=== PATIENT | male | born 1940 | race Asian ===

== ENCOUNTER 2020-05-23 10:25 | Outpatient (CLI) | payer OTHER | END 2020-05-23 22:07 | disposition home or self-care (01) | LOC: MRD 10:25 | PROVIDERS: ATTEND Family Medicine | DX: S09.90XA Unspecified injury of head, initial encounter (principal); I67.82 Cerebral ischemia; X58.XXXA Exposure to other specified factors, initial encounter; Y93.89 Activity, other specified; Y92.89 Other specified places as the place of occurrence of the external cause; Y99.8 Other external cause status | CPT/HCPCS: 70450 ==

== ENCOUNTER 2020-07-05 13:47 | Inpatient (IN) | payer OTHER, SELFPAY ==
[~2020-07-05] VITALS: Ht 170.2 cm; Wt 63.7 kg
[2020-07-05 14:21] VITALS: BP 185/82
[2020-07-05] MEDS ORDERED: metroNIDAZOLE 500 MG/NS PREMIX 100 ML IV ONE (14:30)
--- NOTE | 2020-07-05 14:39 | NUR ---
BIBA TAKEN TO BED 10
[2020-07-05] MEDS ORDERED: AZITHROMYCIN 500 MG in DEXTROSE 5% 250 ML IV ONE (14:40)
--- NOTE | 2020-07-05 14:45 | NUR ---
RECEIVED A 79/M FROM COMM. EXTENDED CARE FOR HYPOXIA/DECREASED SATURATIONS. UPON ARRIVAL TO [facility] PT WAS DIAPHORETIC AND ATTEMPTING TO REMOVE NRB. LUNG SOUNDS CRACKLES BILATERALLY. 20G TO LAC ESTABLISHED AND LABS DRAWN FROM LINE. ROSADO AT BEDSIDE AND ORDER FOR 1MG ATIVAN RECEIVED. WILL MEDICATE ORDERED.
[2020-07-05] MEDS ORDERED: LORazepam 2 MG/ML VIAL ONE (14:48)
[2020-07-05] MEDS ORDERED: LORazepam 2 MG/ML VIAL IVP ONE ×2 (14:50→15:35)
[2020-07-05] MEDS ORDERED: FUROSEMIDE 40 MG/4 ML VIAL IVP ONE (14:50)
[2020-07-05] MEDS ORDERED: DEXAMETHASONE 4 MG/ML VIAL IVP SCH (14:50)
[2020-07-05] MEDS ORDERED: NITROGLYCERIN 2% 1 GM PKT TP ONE (14:55)
[2020-07-05] MEDS ORDERED: cefTRIAXone 1,000 MG VIAL ONE (14:56)
--- NOTE | 2020-07-05 15:10 | NUR ---
REPORT TO MENA VIRGEN. ALL CARE TRANSFERRED.
[2020-07-05 15:20] LABS: BASOPHILS # (AUTO) 0.1 K/uL (0.00-0.22); BASOPHILS % (AUTO) 0.6 % (0.0-2.0); HEMATOCRIT 28.3 % (36-52); HEMOGLOBIN 9.1 g/dL (12.0-18.0); LYMPHOCYTES # (AUTO) 1.4 K/uL (2.0-11.5); LYMPHOCYTES % (AUTO) 10.6 % (20.5-51.1); MEAN CORPUSCULAR HEMOGLOBIN 29 pg (27-31); MEAN CORPUSCULAR HGB CONC 32 g/dL (33-37); MEAN CORPUSCULAR VOLUME 90.6 fL (80-94); MONOCYTES # (AUTO) 1.6 K/uL (0.8-1.0); MONOCYTES % (AUTO) 12.4 % (1.7-9.3); NEUTROPHILS # (AUTO) 10.1 K/uL (1.8-7.7); NEUTROPHILS % (AUTO) 76.4 % (42.2-75.2); PLATELET COUNT (AUTO) 295 K/uL (140-450); RED BLOOD CELL COUNT(AUTO) 3.12 MIL/uL (4.20-6.10); RED CELL DISTRIBUTION WIDTH 16.8 % (11.6-13.7); WHITE BLOOD COUNT (AUTO) 13.2 K/uL (4.8-10.8)
[2020-07-05 15:23] VITALS: BP 250/150
--- NOTE | 2020-07-05 15:34 | NUR ---
EKG being performed at bedside.
[2020-07-05] MEDS ORDERED: METOPROLOL 5 MG/5 ML VIAL IVP ONE (15:35)
--- NOTE | 2020-07-05 15:35 | NUR ---
Dr. Ambrosio notified of pt increased BP 267/110. adviced to medicate with 5mg metropolol.
[2020-07-05] MEDS ORDERED: METOPROLOL 5 MG/5 ML VIAL ONE (15:36)
--- NOTE | 2020-07-05 15:47 | NUR ---
Current BiPaP settings as follows: I/E: 06/04 Rate 14 FIO2 100%
[2020-07-05 15:49] LABS: ALBUMIN 3.6 g/dL (3.4-5.0); ANION GAP 17.8 (8-16); ASPARTATE AMINOTRANSFERASE 24 U/L (15-37); CARBON DIOXIDE 28.1 mmol/L (21-32); CHLORIDE 94 mmol/L (98-107); GLUCOSE 119 mg/dL (74-106); SODIUM SERUM 134 mmol/L (136-145); TOTAL BILIRUBIN 0.5 mg/dL (0.0-1.0)
[2020-07-05] MEDS: ALBUTEROL SULFATE/IPRATROPIU 3 ML SOL IH SCH ×3 (16:09→23:00)
[2020-07-05 16:13] LABS: LACTATE DEHYDROGENASE 243 U/L (85-227)
[2020-07-05 16:16] LABS: CREATININE 8.1 mg/dL (0.6-1.3); UREA NITROGEN, BLOOD 83 mg/dL (7-18)
[2020-07-05 16:17] LABS: POTASSIUM 5.9 mmol/L (3.5-5.1)
--- NOTE | 2020-07-05 16:21 | NUR ---
BiPaP settings changed: I/E 06/04 Rate of 14 FI02 60 saturations holding well @ 99%. Dr. Ambrosio adviced to switch to HFNC.
[2020-07-05] MEDS ORDERED: ZOLPIDEM 5 MG TAB PO PRN (16:45)
[2020-07-05] MEDS ORDERED: HYDROcodone/APAP 5/325 MG 1 TAB TAB PO PRN (16:45)
[2020-07-05] MEDS ORDERED: ALBUTEROL HFA MDI 90 MCG/ACTUATION 8 GM INH PRN (16:45)
[2020-07-05] MEDS ORDERED: MORPHINE SULFATE 2 MG/ML SYR IVP PRN (16:45)
[2020-07-05] MEDS ORDERED: DOCUSATE SODIUM 100 MG GELCAP PO PRN (16:45)
[2020-07-05] MEDS ORDERED: ACETAMINOPHEN 325 MG TAB PO PRN (16:45)
[2020-07-05] MEDS ORDERED: ONDANSETRON 4 MG/2 ML VIAL IVP PRN (16:45)
[2020-07-05] MEDS ORDERED: AZITHROMYCIN 500 MG INJ VIAL IV ONE (16:52)
[2020-07-05] MEDS: NACL 0.9% 1,000 ML IV SCH (18:00)
[2020-07-05 19:12] LABS: CHOL/HDL RATIO 2.4 (1-4.5); FREE T4 (FREE THYROXINE) 1.08 ng/dL (0.76-1.46); MAGNESIUM 3.1 mg/dL (1.8-2.4); PHOSPHORUS 8.9 mg/dL (2.5-4.9); THYROID STIMULATING HORMONE 4.95 uIU/mL (0.34-3.74)
--- NOTE | 2020-07-05 19:58 | NUR ---
s/w Dialysis Nurse Ilsa, stated will have dialysis tomorrow at 0800.
[2020-07-05 20:20] VITALS: BP 231/207
--- NOTE | 2020-07-05 23:45 | NUR ---
s/w Dr. Agosto regarding pt status. stated need to consult with Nephro
--- NOTE | 2020-07-06 00:30 | NUR ---
s/w Dr. Davidson regarding pt status and BP. advised to place PRN orders.
--- NOTE | 2020-07-06 00:47 | NUR ---
s/w Prince SAN for pt transfer of care report.
--- NOTE | 2020-07-06 01:00 | NUR ---
PT TAKEN TO TELEMETRY 118-A. ALL COVID PRECAUTIONS TAKEN IN PLACE WAS TRANSPORTED WITH WILIAM HACKETT AND RT BAUMAN. PT LEFT IN STABLE CONDITION.
--- NOTE | 2020-07-06 01:30 | NUR ---
PT ARRIVED ON UNIT (APPROX. AT 0120) IN STABLE CONDITION VIA STRETCHER AND W ALL BELONGINGS.
[2020-07-06] MEDS: NACL 0.9% 1,000 ML IV SCH (02:45)
[2020-07-06] MEDS: ALBUTEROL SULFATE/IPRATROPIU 3 ML SOL IH SCH ×6 (03:00→23:00)
--- NOTE | 2020-07-06 03:31 | NUR ---
PT HAS TUBE OF UNKNOWN PURPOSE PROJECTING OUT OF LOWER ABDOMEN. WILL ENDORSE TO DAY RN FOR F/U.
[2020-07-06 04:25] VITALS: BP 166/94
--- NOTE | 2020-07-06 06:31 | NUR ---
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
--- NOTE | 2020-07-06 06:46 | NUR ---
SORENSEN (SOO), PRIMARY DECISION-MAKER, , CALLED AND INFORMED DRAWING KILN SUPERVISOR THAT HER FATHER CAME FROM [place], [place] ("[address] AND WAS RECEIVING PERITONEAL DIALYSIS (VIA THE ABDOMINAL TUBE) BUT AFTER SOME TIME BEGAN RECEIVING HEMODIALYSIS (MWF SCHEDULE). PT SPEAKS PORTUGUESE AND JAPANESE. NORMAL LOC IS A+O*NAME ONLY (PRIOR TO DIALYSIS) AND IMPROVES AFTER HD. PT TO HAVE HD THIS AM AT 0800.
--- NOTE | 2020-07-06 07:42 | NUR ---
VERIFIED Eliza DIAZ THAT PT IS TO HAVE EMERGENCY HD AT 0800 THIS AM.
--- NOTE | 2020-07-06 07:45 | NUR ---
RECEIVED PATIENT FROM NIGHT NURSE. PATIENT IN BED, EYES CLOSED, EASILY AROUSBLE TO NAME. RESP EVEN AND UNLABORED ON BIPAP. PEDAL POSITION NOTED. LAC 20G, SL. R UPPER CHEST AKIN NOTED FOR HD. HOB ELEVATED. CALL LIGHT WITHIN REACH. WILL CONTINUE TO MONITOR.
[2020-07-06 08:00] VITALS: BP 160/87
--- NOTE | 2020-07-06 08:07 | NUR ---
BILAT 2-3+PITTING EDEMA NOTED
[2020-07-06] MEDS: ASCORBIC ACID 500 MG TAB PO SCH ×2 (09:00→10:55)
[2020-07-06] MEDS ORDERED: ENOXAPARIN 40 MG/0.4 ML SYR SUBQ SCH (09:00)
[2020-07-06] MEDS: VITAMIN D 400 IU TAB PO SCH ×2 (09:00→10:54)
[2020-07-06] MEDS: AZITHROMYCIN 250 MG TAB PO SCH ×2 (09:00→10:54)
[2020-07-06] MEDS: ENOXAPARIN 30 MG/0.3 ML SYR SUBQ SCH (10:47)
--- NOTE | 2020-07-06 11:13 | NUR ---
PATIENT IN BED AWAKE, SLOW TO RESPOND BUT ALERT. RESP EVEN AND UNLABORED ON BIPAP, O2SAT 93%. RESTRAINTS REMOVED AT THIS TIME D/T OXYGEN DELIVERY METHOD. RT WAS CALLED FOR ALTERNATE METHOD. PATIENT REFUSED PO MEDICATIONS. NO IV POLE OR PUMP AVAILABLE AT THIS TIME. LAC 20G INTACT AND PATENT. PATIENT WAS ENCOURAGED TO NOT PULL ON HIS IV LINE AND HD CATHETER. CALL LIGHT WITHIN REACH. WILL CONTINUE TO MONITOR.
[2020-07-06 12:00] VITALS: BP 121/100
--- NOTE | 2020-07-06 12:05 | NUR ---
PATIENT PLACED HUMIDIFIED HIGH FLOW NC 40L 100% FIO2. PATIENT REMOVED HIS OXYGEN AND DESAT TO 74%. OXYGEN IMMEDIATELY REAPPLIED AND RESTRAINTS APPLIED. O2SAT MAINTAINED 90% AT THIS TIME.
[2020-07-06] MEDS: LORazepam 2 MG/ML VIAL IM/IVP PRN ×3 (12:27→23:44)
--- NOTE | 2020-07-06 12:32 | NUR ---
ATIVAN GIVEN FOR RESTLESSNESS. FLUIDS GIVEN. RESP EVEN AND UNLABORED, O2SAT 95%. CALL LIGHT WITHIN REACH. WILL CONTINUE TO MONITOR.
--- NOTE | 2020-07-06 13:07 | NUR ---
SOCIAL WORK NOTE: Patient's Orientation Unable To Assess Information Provided By ELENI LONDON - DAUGHTER Comments SW WAS UNABLE TO MEET PATIENT AT BEDSIDE TO COMPLETE ASSESSMENT. PATIENT COMPLETED ASSESSMENT WITH PATIENT'S DAUGHTER. Gymnasium Teacher, Realtionship and Phone Number ELENI LONDON DAUGHTER [phone] Healthcare Power of Display Trimmer No Does Patient Have a POLST No Identifying Problems No Social Work Triggers Is A Social Work Consult Needed No Mandate Report Filed No Explanation Of Identifying Problems PATIENT IS A 79-YEAR-OLD MALE ADMITTED FOR COVID. PATIENT HAS PMHX OF HYPERTENSION AND RENAL DISEASE. [facility] - [phone] Pre-Admission Level Of Functioning Status Total Care Prior Resources/Services Used In Last 12 Months SNF [facility] Prior Resources/Service Comments PATIENT IS FDC AND ON A BED HOLD. Prior DME Home Oxygen Walker Dialysis Comments N/A Patient Had Caregiver No Home Support No Caregiver Issues Financial Issues No Known Financial Issue Referral To The Financial Counselor Needed No Factors/Needs No D/C Needs Identified Pt/Rep Participated In Discharge Plan Yes Patient/Family Agress With Discharge Plan Yes Discharge Plan Comments TENTATIVE DISCHARGE PLAN IS FOR PATIENT TO RETURN TO [facility]. DC Plan Status Initiated
--- NOTE | 2020-07-06 13:45 | NUR ---
PATIENT RESTLESS. O2SAT 90%, DR BEAULIEU IN HOUSE GAVE ORDER FOR ATIVAN 0.5ML IVP X1 NOW. ORDER CARRIED OUT. Addendum: 07/06/20 at 1816 by Lynette Peña RN SPOKE TO DAUGHTER ELENI, ABOUT PATIENT CODE STATUS. PATIENT IS A FULL DNR. DR ERWIN MADE AWARE.
[2020-07-06] MEDS ORDERED: LORazepam 2 MG/ML VIAL IVP SCH (14:00)
[2020-07-06 16:00] VITALS: BP 158/101
--- NOTE | 2020-07-06 16:00 | NUR ---
ENDORSED PATIENT TO MENA COFFMAN FOR CONTINUITY OF CARE. PATIENT IN BED EYES CLOSED, RESP EVEN WITH MINOR LABORED ON HUMIDIFIED HIGH FLOW 40L NC, O2SAT 91%. RESTRAINTS IN PLACE AT THIS TIME. CALL LIGHT WITHIN REACH. WILL CONTINUE TO MONITOR.
--- NOTE | 2020-07-06 16:10 | NUR ---
RECEIVED PATIENT AGITATED, ON BILATERAL SOFT WRIST RESTRAINTS. NO SIGNS OF CYANOSIS ON DISTAL MORIAH UPPER EXTREMITIES. PT ON HIGH FLOW O2 AT 40L, OBTAINED 91% O2 SAT. KEPT HOB ELEVATED. WILL CONTINUE TO MONITOR.
--- NOTE | 2020-07-06 17:32 | NUR ---
PT IS RESTLESS AND AGITATED. PT IS TACHYPNEIC WITH 02 SAT AT 85%. ATIVAN PRN GIVEN. REPOSITIONING DONE.
--- NOTE | 2020-07-06 18:00 | NUR ---
PLACED PT TO 15L NRM. RT RILEY IS AWARE. OBTAINED 92% O2 SAT THEREAFTER
--- NOTE | 2020-07-06 18:15 | NUR ---
SPOKE WITH DR. Brooklynn RICCI TO CHANGE CODE STATUS TO DNR PER FAMILY/PATIENT DECISION.
--- NOTE | 2020-07-06 18:23 | NUR ---
SPOKE WITH PT'S DAUGHTER ELENI TO FAX PT'S POLST PAPER. FAMILY IS AWARE OF PT'S DNR STATUS.
--- NOTE | 2020-07-06 19:45 | NUR ---
ENDORSED PT TO MOLD FILLER AND DRAINER RN. POC REVIEWED. PT IS STABLE. NO S/S OF DISTRESS.
[2020-07-06 20:00] VITALS: BP 173/112
--- NOTE | 2020-07-06 20:00 | NUR ---
RECEIVED REPORT FROM AM SHIFT MEGHNA SAN. PT NOTED WITH RESP DISTRESS AND ANXIETY. BP IS HIGH 173/112 HR 140 AND SPO2 93%. PATIENT CONT HUMIDIFIED HIGH FLOW NC 40L 100% FIO2. AND NON REBREATHER MASK AT 15 LPM.PATIENT KEEP TRYING TO REMOVE HIS OXYGEN TUBE. OXYGEN IMMEDIATELY REAPPLIED . REMIND PT NOT TO REMOVE THE O2 TUBE. CONT TO MAINTAINED SPO2 > 90% AT THIS TIME. RESTRAIN TO MORIAH HAND IN PLACE. PT ON DIALYSIS SCHEDULE - - - PER REPORT. IV LINE TO RIGHT AC NO 20 FLUSHING WELL. IVF NS AT 10 CC/HR. DIALYSIS SITE TO RIGHT CHEST. OLD PERITONEAL CATHETER STILL IN PLACE.PER REPORT PT IS DNR.NO SKIN PROBLEM ON THE RESTRAINT AREA NOTED. SKIN WARM TO TOUCH.CONT CLOSE MONITORING.
[2020-07-06] MEDS: hydrALAZINE 20 MG/ML VIAL IVP PRN ×3 (20:19→23:47)
--- NOTE | 2020-07-06 21:40 | NUR ---
APRESOLINE 20 MG IVP WAS GIVEN D/T BP HIGH 173/112 AFTER 1 HOUR BP DOWN TO 156/100 HR 140. SPO2 92%.
[2020-07-07] VITALS: BP 147/91
--- NOTE | 2020-07-07 | NUR ---
CONT TO MONITOR CLOSELY SPO2 90-92%. UA COLLECTED AND SENT TO LAB.
--- NOTE | 2020-07-07 01:00 | NUR ---
ATIVAN WAS GIVEN AROUND 2345 (07/06/20) D/T PT ANXIOUS AND EUGENIA WELL. PT LOOK MORE CALM AT THIS TIME.
--- NOTE | 2020-07-07 02:10 | NUR ---
PT TRYING TO REMOVED THE MASK/O2. CONT TO REMIND PT TO RELAX AND TO LEAVE THE O2 MASK ON. SPO2 90%.
[2020-07-07] MEDS: ALBUTEROL SULFATE/IPRATROPIU 3 ML SOL IH SCH ×6 (03:00→23:00)
[2020-07-07 04:00] VITALS: BP 179/111
--- NOTE | 2020-07-07 06:20 | NUR ---
APRESOLINE 20MG GIVEN D/T HIGH BP 197/111 HR 147 SPO2 93%.
[2020-07-07] MEDS: LORazepam 2 MG/ML VIAL IM/IVP PRN ×2 (06:22→21:42)
[2020-07-07] MEDS: hydrALAZINE 20 MG/ML VIAL IVP PRN (06:23)
--- NOTE | 2020-07-07 07:30 | NUR ---
BP DOWN TO 154/96
--- NOTE | 2020-07-07 07:54 | NUR ---
REPORT GIVEN TO LUIS SAN. PT IS AWAKE STILL ANXIOUS.
[2020-07-07 08:00] VITALS: BP 151/90
--- NOTE | 2020-07-07 08:00 | NUR ---
RECEIVED REPORT FROM THE WAREHOUSE SPECIALIST FOR CONTINUITY OF CARE. PATIENT AWAKE, VERY RESTLESS, ON BILATERAL WRIST RESTRAINT. ON MONITOR SHOWS ST/SR. WITH IVF ON GOING AND INFUSING WELL. ON HIGH FLOW [id number]%. WILL CONTINUE TO MONITOR.
[2020-07-07 08:36] LABS: BASOPHILS % (AUTO) 0.1 % (0.0-2.0); HEMATOCRIT 29.8 % (36-52); HEMOGLOBIN 9.7 g/dL (12.0-18.0); LYMPHOCYTES # (AUTO) 0.6 K/uL (2.0-11.5); LYMPHOCYTES % (AUTO) 4.4 % (20.5-51.1); MEAN CORPUSCULAR HEMOGLOBIN 29 pg (27-31); MEAN CORPUSCULAR HGB CONC 33 g/dL (33-37); MEAN CORPUSCULAR VOLUME 89.7 fL (80-94); MONOCYTES # (AUTO) 0.9 K/uL (0.8-1.0); MONOCYTES % (AUTO) 6.8 % (1.7-9.3); NEUTROPHILS # (AUTO) 12.3 K/uL (1.8-7.7); NEUTROPHILS % (AUTO) 88.7 % (42.2-75.2); PLATELET COUNT (AUTO) 268 K/uL (140-450); RED BLOOD CELL COUNT(AUTO) 3.33 MIL/uL (4.20-6.10); RED CELL DISTRIBUTION WIDTH 17.1 % (11.6-13.7); WHITE BLOOD COUNT (AUTO) 13.9 K/uL (4.8-10.8)
[2020-07-07 08:40] LABS: ANION GAP 24.9 (8-16); CARBON DIOXIDE 20.4 mmol/L (21-32); CHLORIDE 97 mmol/L (98-107); GLUCOSE 82 mg/dL (74-106); POTASSIUM 5.3 mmol/L (3.5-5.1); SODIUM SERUM 137 mmol/L (136-145)
[2020-07-07] MEDS ORDERED: EPOETIN ALFA 4,000 UNITS/ML VIAL IV SCH (09:00)
--- NOTE | 2020-07-07 10:00 | NUR ---
SCHEDULED MEDICATION GIVEN CRUSHED AND TOLERATED WELL. WILL CONTINUE TO MONITOR.
[2020-07-07] MEDS: VITAMIN D 400 IU TAB PO SCH (10:06)
[2020-07-07] MEDS: AZITHROMYCIN 250 MG TAB PO SCH (10:06)
[2020-07-07] MEDS: ASCORBIC ACID 500 MG TAB PO SCH (10:06)
[2020-07-07] MEDS: ENOXAPARIN 30 MG/0.3 ML SYR SUBQ SCH (10:12)
[2020-07-07 10:35] LABS: PHOSPHORUS 10.5 mg/dL (2.5-4.9); UREA NITROGEN, BLOOD 94 mg/dL (7-18)
[2020-07-07 10:54] LABS: APPEARANCE,URINE HAZY (CLEAR); BILIRUBIN,URINE NEGATIVE (NEGATIVE); BLOOD, URINE 3+ (NEGATIVE); COLOR,URINE YELLOW (YELLOW); LEUKOCYTE ESTERASE ,URINE NEGATIVE (NEGATIVE); NITRITE, URINE NEGATIVE (NEGATIVE); UGLUCOSE TRACE (NEGATIVE)
[2020-07-07 12:00] VITALS: BP 130/87
--- NOTE | 2020-07-07 13:26 | NUR ---
PATIENT HAS BEEN SCREENED AND CATEGORIZED MODERATE NUTRITION RISK. PATIENT WILL BE SEEN WITHIN 3-5 DAYS OF ADMISSION. 07/07/20 07/09/[address]
[2020-07-07 14:53] LABS: RBC,URINE 11-20 (MOD) /HPF (0-5); WBC,URINE 0-5 /HPF (0-5)
--- NOTE | 2020-07-07 15:37 | NUR ---
PATIENT FOR DIALYSIS TODAY, DIALYSIS NURSE AT BEDSIDE. PATIENT DAUGHTER CALLED AND HANDED THE PHONE TO THE PATIENT. PATIENT ASLEEP. WILL CONTINUE TO MONITOR.
[2020-07-07 16:00] VITALS: BP 123/67
--- NOTE | 2020-07-07 16:35 | NUR ---
DC PLANN[age] YRS OLD MALE PATIENT WAS ADMITTED FROM [facility] WITH A DX OF COVID . RAPID COVID TEST IS POSITIVE . STARTED COVID TREATMENT, ROCEPHIN AND AZITHROMYCIN. ON HIGH FLOW O2 40 L/NC FIO2 100% . CONSULTED WITH PULMO CARDIO, AND NEPHRO FOR HEMODIALYSIS. DC PLAN TO GO BACK TO [facility] WHEN STABLE. CM TO FOLLOW
--- NOTE | 2020-07-07 18:00 | NUR ---
DIALYSIS DONE WITH 4L OUTPUT REMOVED, VITALS STABLE. PATIENT RESTING IN BED. WILL CONTINUE TO MONITOR.
--- NOTE | 2020-07-07 19:00 | NUR ---
REPORT GIVEN TO THE GRAIN MANAGER FOR CONTINUITY OF CARE. IN STABLE CONDITION.
--- NOTE | 2020-07-07 19:01 | NUR ---
RECEIVED BEDSIDE REPORT FROM DAY RN. PT IS SLEEP COMFORTABLY IN BED WITH EYES CLOSED. CHEST RISE AND FALL NOTED. ON HIGH FLOW 40L AND NRB SAT WELL 96-99%. SKIN IS INTACT. PT IS FROM [facility] DNR. IV ON LAC 20G IVF PER ORDERS. PT IS ON MORIAH SOFT WRIST RESTRAINTS D/T REMOVING OXYGEN. HX ESRD LAST HD TODAY WITH 4L OUTPUT. PT ON DROPLET ISOLATION FOR COVID. POC DISCUSSED WITH PT. PT UNABLE TO COMPREHEND. SAFETY MEASURES ARE IN PLACE. WILL ROUND FREQUENTLY.
[2020-07-07 20:00] VITALS: BP 105/63
--- NOTE | 2020-07-07 21:42 | NUR ---
ADMINISTERED PRN ATIVAN FOR AGITATION. PT KEEPS REMOVING NRB MASK BY MOVING HEAD UP AND DOWN SIDE TO SIDE. REORIENTED PT TO ROOM,STAFF AND POC. PT DE SATS 70-80 WITHOUT NRB. PT SAT 90-93% ON NRB AND HIGH FLOW 40L WILL CONTINUE TO MONITOR.
[2020-07-08] VITALS: BP 92/59
--- NOTE | 2020-07-08 | NUR ---
VITAL SIGNS ARE STABLE. PT IS SINUS TACHY 160S NO S/S OF DISTRESS. SAFETY MEASURES ARE IN PLACE. WILL CONTINUE TO MONITOR.
[2020-07-08] MEDS: ALBUTEROL SULFATE/IPRATROPIU 3 ML SOL IH SCH ×6 (03:00→23:00)
--- NOTE | 2020-07-08 03:30 | NUR ---
MD MADE AWARE OF PATIENT ELEVATED HEART RATE IN 150-160S NO CHANGE IN ORDERS. WILL CONTINUE TO MONITOR.
[2020-07-08 04:00] VITALS: BP 125/71
--- NOTE | 2020-07-08 04:08 | NUR ---
VITAL SIGNS ARE WITHIN NORMAL LIMITS. ALL SAFETY MEASURES ARE IN PLACE. WILL CONTINUE TO MONITOR.
--- NOTE | 2020-07-08 06:00 | NUR ---
MADE ROUNDS. PT REMOVED NRB MASK SAT LOW 80S. REAPPLIED NRB AND REPOSITION PT FOR COMFORT. GAVE PT WATER TOLERATED WELL. HOB ELEVATED. PT REMAINS ON MORIAH SOFT RESTRAINTS FOR SAFETY. WILL CONTINUE TO MONITOR.
--- NOTE | 2020-07-08 07:35 | NUR ---
GAVE BEDSIDE REPORT TO DAY RN. PT ENDORSED IN STABLE CONDITION.
[2020-07-08 08:00] VITALS: BP 162/69
[2020-07-08 09:41] LABS: BASOPHILS % (AUTO) 0.2 % (0.0-2.0); HEMATOCRIT 34.3 % (36-52); HEMOGLOBIN 11.3 g/dL (12.0-18.0); LYMPHOCYTES # (AUTO) 0.4 K/uL (2.0-11.5); LYMPHOCYTES % (AUTO) 2.5 % (20.5-51.1); MEAN CORPUSCULAR HEMOGLOBIN 29 pg (27-31); MEAN CORPUSCULAR HGB CONC 33 g/dL (33-37); MONOCYTES # (AUTO) 0.8 K/uL (0.8-1.0); MONOCYTES % (AUTO) 4.9 % (1.7-9.3); NEUTROPHILS # (AUTO) 14.5 K/uL (1.8-7.7); NEUTROPHILS % (AUTO) 92.4 % (42.2-75.2); PLATELET COUNT (AUTO) 280 K/uL (140-450); RED BLOOD CELL COUNT(AUTO) 3.86 MIL/uL (4.20-6.10); RED CELL DISTRIBUTION WIDTH 16.8 % (11.6-13.7); WHITE BLOOD COUNT (AUTO) 15.7 K/uL (4.8-10.8)
[2020-07-08 10:18] LABS: ALBUMIN 3.5 g/dL (3.4-5.0); ANION GAP 23.2 (8-16); ASPARTATE AMINOTRANSFERASE 39 U/L (15-37); CARBON DIOXIDE 22.9 mmol/L (21-32); CHLORIDE 97 mmol/L (98-107); GLUCOSE 80 mg/dL (74-106); LACTATE DEHYDROGENASE 353 U/L (85-227); POTASSIUM 5.1 mmol/L (3.5-5.1); SODIUM SERUM 138 mmol/L (136-145); TOTAL BILIRUBIN 0.5 mg/dL (0.0-1.0)
[2020-07-08] MEDS: ASCORBIC ACID 500 MG TAB PO SCH (10:39)
[2020-07-08] MEDS: ENOXAPARIN 30 MG/0.3 ML SYR SUBQ SCH (10:39)
[2020-07-08] MEDS: VITAMIN D 400 IU TAB PO SCH (10:39)
--- NOTE | 2020-07-08 10:39 | NUR ---
SCHEDULED MEDICATIONS DUE GIVEN. WILL CONTINUE TO MONITOR.
[2020-07-08] MEDS: LORazepam 2 MG/ML VIAL IM/IVP PRN ×2 (10:59→15:04)
[2020-07-08 12:00] VITALS: BP 171/61
[2020-07-08 12:12] LABS: CREATININE 7.3 mg/dL (0.6-1.3); PHOSPHORUS 9.7 mg/dL (2.5-4.9); UREA NITROGEN, BLOOD 87 mg/dL (7-18)
[2020-07-08] MEDS: LABETALOL 100 MG/20 ML VIAL IVP PRN ×3 (12:13→23:58)
[2020-07-08 16:00] VITALS: BP 184/58
[2020-07-08] MEDS: hydrALAZINE 20 MG/ML VIAL IVP PRN (17:02)
[2020-07-08] MEDS: SEVELAMER CARBONATE 800 MG TAB PO SCH (17:02)
--- NOTE | 2020-07-08 17:07 | NUR ---
SCHEDULED MEDICATIONS DUE GIVEN. FLACC 8, MORPHINE GIVEN AT THIS TIME. WILL CONTINUE TO MONITOR.
--- NOTE | 2020-07-08 19:30 | NUR ---
RECEIVED BEDSIDE REPORT FROM DAY RN. PT IS IN BED REMAINS CONFUSED ATTEMPTING TO REMOVE NRB MASK. PT IS ON MORIAH SOFT WRIST RESTRAINTS. RESPIRATIONS ARE EQUAL AND LABORED RR 23 ON HIGH FLOW 40L AND NRB 15L SAT WELL 93-94%. SKIN IS INTACT. PT IS FROM [facility] DNR. IV ON LAC 20G IVF PER ORDERS. HX ESRD HD YESTERDAY HAS R CHEST TUNNELED CATH. PT ON DROPLET ISOLATION FOR COVID. POC DISCUSSED WITH PT. PT UNABLE TO COMPREHEND. SAFETY MEASURES ARE IN PLACE. HOB ELEVATED. CALL LIGHT IS WITHIN REACH. BED ALARM ON. WILL ROUND FREQUENTLY.
--- NOTE | 2020-07-08 19:32 | NUR ---
GAVE REPORT TO PROMOTIONS ASSISTANT SALES MARKETING NURSE FOR CONTINUITY OF CARE. PATIENT IN STABLE CONDITION.
--- NOTE | 2020-07-08 19:55 | NUR ---
RECHECKED PT'S BP: 134/48 HR 153BPM. BLOOD PRESSURE HAS IMPROVED PTS HEART RATE REMAINS ELEVATED MD IS AWARE. PT REMAINS ON TELE MONITOR. ALL SAFETY MEASURES ARE IN PLACE. WILL CONTINUE TO MONITOR.
[2020-07-08 20:00] VITALS: BP 134/48
--- NOTE | 2020-07-08 22:10 | NUR ---
ASSISTED PT WITH DINNER MAINTAIN ASPIRATION PRECAUTIONS. PATIENT ATE HALF OF JELLO AND A COUPLE SPOONFULS OF WATER. HOB ELEVATED. SAFETY MEASURES ARE IN PLACE. WILL CONTINUE TO MONITOR.
--- NOTE | 2020-07-08 23:58 | NUR ---
B/P 173/76 152BPM 90% RR 24 ADMINISTERED PRN LABETALOL. PT REMAINS ON TELE MONITOR. WILL CONTINUE TO MONITOR CLOSELY.
[2020-07-09] VITALS: BP 173/76
[2020-07-09 00:58] VITALS: BP 162/58
[2020-07-09] MEDS: LORazepam 2 MG/ML VIAL IM/IVP PRN ×2 (01:01→08:21)
--- NOTE | 2020-07-09 01:01 | NUR ---
BP RECHECKED 162/58 149 BPM. PATIENT IS AGITATED ATTEMPTING TO REMOVE NRB MASK. ATTEMPT TO REORIENT PT. PT CONT TO REMOVE NRB MASK ADMINISTERED PRN ATIVAN. SAFETY MEASURES ARE IN PLACE. WILL CONTINUE TO MONITOR.
[2020-07-09] MEDS: ALBUTEROL SULFATE/IPRATROPIU 3 ML SOL IH SCH ×2 (03:00→07:00)
[2020-07-09] MEDS: hydrALAZINE 20 MG/ML VIAL IVP PRN (03:56)
--- NOTE | 2020-07-09 04:00 | NUR ---
VITAL SIGNS ARE WITHIN NORMAL LIMITS. ALL SAFETY MEASURES ARE IN PLACE. WILL CONTINUE TO MONITOR.
[2020-07-09 04:14] VITALS: BP 165/64
--- NOTE | 2020-07-09 04:50 | NUR ---
BP RECHECK 129/44 151 BPM. ALL SAFETY MEASURES ARE IN PLACE. WILL CONTINUE TO MONITOR.
[2020-07-09 04:57] VITALS: BP 129/44
--- NOTE | 2020-07-09 07:20 | NUR ---
GAVE BEDSIDE REPORT TO DAY RN. PT REMAINS ANXIOUS TRYING TO REMOVE NRB MASK. PT REMAINS ON MORIAH WRIST RESTRAINTS.
--- NOTE | 2020-07-09 07:21 | NUR ---
RECEIVED REPORT FROM STATOR CONNECTOR RN FOR CONTINUITY OF CARE. PATIENT ASLEEP IN BED, HR 151, O2 SAT 92% WITH HIGH FLOW PLUS NRB. LABORED BREATHING. SKIN INTACT. PER STATOR CONNECTOR, PATENT BEEN ST, HR 150S DURING THE WHOLE STATOR CONNECTOR. WILL REPORT TO MD AND CALL RT TO CHECK THE PATIENT.
--- NOTE | 2020-07-09 07:50 | NUR ---
RT WAS CALLED TO CHECK THE PATIENT. PER RT, AFTER HE CHECKED WITH ICU PATIENT WILL COME TO CHECK THE PATIENT.
--- NOTE | 2020-07-09 07:52 | NUR ---
DR. HOFF MADE AWARE THAT PATIENT IS TACHYCARDIA, HR 150S, ATIVAN ORDER OBTAINED. WILL CARRY OUT.
[2020-07-09 08:00] VITALS: BP 144/42
[2020-07-09] MEDS: SEVELAMER CARBONATE 800 MG TAB PO SCH ×3 (08:21→12:00)
[2020-07-09] MEDS: ENOXAPARIN 30 MG/0.3 ML SYR SUBQ SCH (08:27)
--- NOTE | 2020-07-09 08:28 | NUR ---
ATIVAN GIVEN VIA IVP PER MD ORDER. LOVENOX GIVEN. ORAL MEDS NON GIVEN DUE TO PATIENT NOT AWAKE. RT CHECKED THE PATIENT, SUCTION PERFORMED. O2 SAT 93% WITH 40L HIGH FLOW + 15L NRB. HR 148. COARSE AND WET LUNG SOUNDS. WILL ADMINISTER LASIX. WILL CONTINUE TO MONITOR.
[2020-07-09] MEDS: ASCORBIC ACID 500 MG TAB PO SCH (08:29)
[2020-07-09] MEDS: VITAMIN D 400 IU TAB PO SCH (08:29)
[2020-07-09] MEDS ORDERED: FUROSEMIDE 20 MG/2 ML VIAL IVP SCH (08:30)
--- NOTE | 2020-07-09 08:30 | NUR ---
CHEF INSTRUCTOR CALLED TO BEDSIDE BY LACIE/RN PATIENT CLASS CODE DNR PMHX: COPD HTN PNA RENAL DISEASES WITH HEMODIALYSIS 3/WEEK REVIEWED EMAR NO LASIX ORDERED LOC AWAKE RESPONSIVE TO STIMULUS HOB 30 DEGREES PRESENTING WITH HR AT 151 LABORED BREATHING RR 29 SATURATION 93% BREATH SOUNDS COARSE RALES BILATERAL VAPOTHERM 100% 40 LPM T 37.0 DEGREES PLUS SUPPLEMENTAL OXYGEN AT 15 LPM VIA NON REBREATHER NASOTRACHEAL SUCTION X 2 FOR LARGE THIN HAZY/CLEAR SECRETIONS REVIEWED PATIENT FINDINGS AND STATUS WITH LACIE/RN CHEF INSTRUCTOR RECOMMENDATION TO RN ORDER LASIX
[2020-07-09 08:50] LABS: BASOPHILS % (AUTO) 0.3 % (0.0-2.0); HEMATOCRIT 35.5 % (36-52); HEMOGLOBIN 11.5 g/dL (12.0-18.0); LYMPHOCYTES # (AUTO) 0.3 K/uL (2.0-11.5); LYMPHOCYTES % (AUTO) 2.2 % (20.5-51.1); MEAN CORPUSCULAR HEMOGLOBIN 29 pg (27-31); MEAN CORPUSCULAR HGB CONC 32 g/dL (33-37); MEAN CORPUSCULAR VOLUME 89.3 fL (80-94); MONOCYTES # (AUTO) 0.4 K/uL (0.8-1.0); MONOCYTES % (AUTO) 2.8 % (1.7-9.3); NEUTROPHILS # (AUTO) 14.9 K/uL (1.8-7.7); NEUTROPHILS % (AUTO) 94.7 % (42.2-75.2); PLATELET COUNT (AUTO) 291 K/uL (140-450); RED BLOOD CELL COUNT(AUTO) 3.97 MIL/uL (4.20-6.10); WHITE BLOOD COUNT (AUTO) 15.8 K/uL (4.8-10.8)
[2020-07-09 09:02] LABS: CARBON DIOXIDE 19.1 mmol/L (21-32); CHLORIDE 101 mmol/L (98-107); GLUCOSE 101 mg/dL (74-106); SODIUM SERUM 141 mmol/L (136-145)
[2020-07-09 10:01] LABS: UREA NITROGEN, BLOOD 128 mg/dL (7-18)
[2020-07-09] MEDS ORDERED: DILTIAZEM 25 MG/5 ML VIAL IVP SCH (10:01)
[2020-07-09 10:02] LABS: CREATININE 9.6 mg/dL (0.6-1.3); POTASSIUM 7.1 mmol/L (3.5-5.1)
--- NOTE | 2020-07-09 10:12 | NUR ---
RECEIVED CRITICAL LAB VALUE K+ 7.1, BUN 128, CR 9.6, REPORT TO NAOMI GORDILLO, STAT HD. REACHED DIALYSIS NURSE COWAN. INFORMED THE SUSY HD ORDER. PER COWAN, DIALYSIS NURSE WILL BE HERE IN ABOUT 1 HOUR. WILL CONTINUE TO FOLLOW UP.
[2020-07-09 12:00] VITALS: BP 86/46
[2020-07-09] MEDS ORDERED: DEXTROSE 50% 50 ML SYR IVP SCH (12:00)
[2020-07-09] MEDS ORDERED: INSULIN REGULAR, HUMAN 100 UNIT/ML VIAL IVP SCH (12:00)
--- NOTE | 2020-07-09 12:39 | NUR ---
CHECKED THE PATIENT, UNDER DIALYSIS. HR 66. O2 SAT 95% WITH 40L HIGH FLOW PLUS 15L NRB. LABORED BREATHING, BREATHING THROUGH MOUTH. BP 110/61. WILL CONTINUE TO MONITOR.
[2020-07-09] MEDS ORDERED: DILTIAZEM 30 MG TAB PO SCH (13:00)
[2020-07-09] MEDS ORDERED: CALCIUM GLUCONATE 10% 1,000 MG in NACL 0.9% 50 ML IV SCH (13:00)
--- NOTE | 2020-07-09 13:45 | NUR ---
PATIENT STOPPED BREATHING AND DURING DIALYSIS. PRONOUNCED BY ER DOCTOR. TIME OF 13:45. PATIENT'S DAUGHTER ELENI [phone] WAS INFORMED OVER THE PHONE.
--- NOTE | 2020-07-09 14:06 | NUR ---
COMMERCIAL SHRIMPING CAPTAIN BEEN NOTIFIED OF THE . THE CLERT [place] MADE AWARE. WILL CALL BACK.
--- NOTE | 2020-07-09 14:13 | NUR ---
REACHED [facility], SPOKE WITH OFFICER FILOMENA PALOMO. . CAN RELEASE THE BODY.
--- NOTE | 2020-07-09 14:15 | NUR ---
RECEIVED CALL BACK FROM LIBRARIAN HELPER OFFICER Jaxson HERCULES, NOT LIBRARIAN HELPER'S CASE.
== END 2020-07-09 13:45 | DRG 871 ==
LOC: MED 13:47 → MTU 16:50
PROVIDERS: ADMIT Family Medicine; ATTEND Family Medicine
PROC: 5A09357 Assistance with Respiratory Ventilation, Less than 24 Consecutive Hours, Continuous Positive Airway Pressure (ICD-10-PCS; principal; 2020-07-05)
PROC: 5A1D70Z Performance of Urinary Filtration, Intermittent, Less than 6 Hours Per Day (ICD-10-PCS; 2020-07-05)
PROC: 5A0935A Assistance with Respiratory Ventilation, Less than 24 Consecutive Hours, High Flow/Velocity Cannula (ICD-10-PCS; 2020-07-06)
PROC: 5A1D70Z Performance of Urinary Filtration, Intermittent, Less than 6 Hours Per Day (ICD-10-PCS; 2020-07-07)
PROC: 5A1D70Z Performance of Urinary Filtration, Intermittent, Less than 6 Hours Per Day (ICD-10-PCS; 2020-07-09)
DX: A41.89 Other specified sepsis (principal); U07.1 COVID-19; N17.0 Acute kidney failure with tubular necrosis; N18.6 End stage renal disease; I50.43 Acute on chronic combined systolic (congestive) and diastolic (congestive) heart failure; J96.01 Acute respiratory failure with hypoxia; J12.82 Pneumonia due to coronavirus disease 2019; I21.A1 Myocardial infarction type 2; E87.1 Hypo-osmolality and hyponatremia; I13.2 Hypertensive heart and chronic kidney disease with heart failure and with stage 5 chronic kidney disease, or end stage renal disease; I16.1 Hypertensive emergency; D68.59 Other primary thrombophilia; I47.1 Supraventricular tachycardia; Z66 Do not resuscitate; E87.5 Hyperkalemia; K21.9 Gastro-esophageal reflux disease without esophagitis; D63.8 Anemia in other chronic diseases classified elsewhere; R73.9 Hyperglycemia, unspecified; F03.90 Unspecified dementia, unspecified severity, without behavioral disturbance, psychotic disturbance, mood disturbance, and anxiety; E83.39 Other disorders of phosphorus metabolism; Z99.2 Dependence on renal dialysis
CPT/HCPCS: 36415; 36600; 71045; 76604; 80048; 80053; 81001; 82150; 82550; 82728; 82803; 83036; 83605; 83615; 83690; 83735; 83880; 84100; 84439; 84443; 84484; 85025; 85379; 85384; 85610; 85651; 85730; 86140; 86900; 86901; 87040; 87086; 90935; 93005; 96365; 96367; 96375; 99291; C1758; J0360; J0456; J0610; J0696; J0885; J1644; J1650; J1815; J1940; J2060; J2270; J3490; J7030; J7060